=== PATIENT | female | born 1985 | race Caucasian/White ===

== ENCOUNTER → 2017-05-17 | Outpatient (CLI) | payer OTHER ==
[~2017-05-17] MED LIST: CEFDINIR300 MG PO; LEVAQUIN 500 M500 MG PO; PREDNISONE 20 M20 M1 PO; PROAIR HFA8.5 GM INH; TUSSIONEX PENN115 ML PO; VENTOLIN HFA 1818 GM INH; ZPAK PO
== END | disposition home or self-care (01) ==
LOC: M.RAD 05-06 10:38
DX: M25.552 Pain in left hip (principal)

== ENCOUNTER 2017-07-08 19:25 | Emergency (ER) | payer OTHER ==
[~2017-07-08] VITALS: Ht 167.6 cm; Wt 83.9 kg
[2017-07-08] MEDS ORDERED: CEFDINIR300 MG PO (19:36)
[2017-07-08] MEDS ORDERED: VENTOLIN HFA 1818 GM INH (19:37)
[2017-07-08] MEDS ORDERED: PROAIR HFA8.5 GM INH (20:12)
[2017-07-08] MEDS ORDERED: PREDNISONE 20 M20 M1 PO (20:12)
[2017-07-08] MEDS ORDERED: ZPAK PO (20:14)
[2017-07-08 21:33] VITALS: BP 119/81
== END 2017-07-08 21:34 | disposition home or self-care (01) ==
LOC: M.ERS 19:25
DX: J20.9 Acute bronchitis, unspecified (principal)

== ENCOUNTER 2017-07-17 01:03 | Emergency (ER) | payer OTHER ==
[~2017-07-17] VITALS: Ht 167.6 cm; Wt 83.9 kg
[~2017-07-17 01:03] MED LIST changes: -LEVAQUIN 500 M500 MG PO; -TUSSIONEX PENN115 ML PO
[2017-07-17 01:48] LABS: ABSOLUTE BASOPHILS 0.1 thou/uL (0.0-0.2); ABSOLUTE EOSINOPHILS 0.2 thou/uL (0.0-0.7); ABSOLUTE LYMPHOCYTES 2.4 thou/uL (0.8-5.3); ABSOLUTE MONOCYTES 0.8 thou/uL (0.0-1.2); BASOPHILS 0.5 %; EOSINOPHILS 1.8 %; HEMATOCRIT 40.7 % (37.0-47.0); HEMOGLOBIN 13.8 gm/dL (12.0-15.0); LYMPHOCYTES 17.5 %; MCH 31.1 pg (26.0-34.0); MCHC 33.9 g/dL (28.0-37.0); MCV 91.8 fL (80.0-100.0); MONOCYTES 5.8 %; MPV 9.2 fl. (7.2-11.1); NUCLEATED RBCS 0 /100WBC; PLATELET COUNT* 279 thou/uL (150-400); POLYS 74.4 %; RBC 4.43 mil/uL (4.20-5.00); RDW-CV 12.2 % (10.5-14.5); WBC 13.5 thou/uL (4.0-11.0)
[2017-07-17 01:49] LABS: CALCIUM 9.1 mg/dL (8.5-10.1); CREATININE 0.9 mg/dL (0.6-1.3); POTASSIUM 4.1 mmol/L (3.5-5.1)
[2017-07-17 01:54] LABS: ALBUMIN 3.7 g/dL (3.4-5.0); TOTAL BILIRUBIN 0.4 mg/dL (<0.1-1.0); TOTAL PROTEIN 7.2 g/dL (6.4-8.2)
[2017-07-17] MEDS ORDERED: PREDNISONE 20 M20 M1 PO (03:36)
[2017-07-17] MEDS ORDERED: LEVAQUIN 500 M500 MG PO (03:36)
[2017-07-17] MEDS ORDERED: TUSSIONEX PENN115 ML PO (03:38)
[2017-07-17 03:49] VITALS: BP 121/76
== END 2017-07-17 03:52 | disposition home or self-care (01) ==
LOC: M.ERS 01:03
PROVIDERS: Family Medicine
DX: J18.9 Pneumonia, unspecified organism (principal); Z87.891 Personal history of nicotine dependence

== ENCOUNTER 2020-12-01 10:52 | Emergency (ER) | payer OTHER ==
[~2020-12-01] VITALS: Ht 167.6 cm; Wt 90.7 kg
[~2020-12-01 10:52] MED LIST changes: +LEVAQUIN 500 M500 MG PO; +TUSSIONEX PENN115 ML PO
[2020-12-01 11:49] LABS: ABSOLUTE EOSINOPHILS 0.2 thou/uL (0.0-0.7); ABSOLUTE LYMPHOCYTES 1.4 thou/uL (0.8-5.3); ABSOLUTE MONOCYTES 0.5 thou/uL (0.0-1.2); ABSOLUTE NEUTROPHILS 6.4 thou/uL (1.6-8.1); BASOPHILS 0.3 %; EOSINOPHILS 2.4 %; HEMOGLOBIN 15.6 gm/dL (12.0-15.0); LYMPHOCYTES 16.4 %; MCH 31.6 pg (26.0-34.0); MCHC 34.7 g/dL (28.0-37.0); MCV 91.2 fL (80.0-100.0); MONOCYTES 5.7 %; MPV 9.3 fl. (7.2-11.1); NUCLEATED RBCS 0 /100WBC; PLATELET COUNT* 193 thou/uL (150-400); POLYS 75.2 %; RBC 4.93 mil/uL (4.20-5.00); RDW-CV 12.1 % (10.5-14.5); WBC 8.5 thou/uL (4.0-11.0)
[2020-12-01 11:53] LABS: INFLUENZA A ANTIGEN Negative (Negative); INFLUENZA B ANTIGEN Negative (Negative)
[2020-12-01 12:01] LABS: CREATININE 0.8 mg/dL (0.6-1.3); POTASSIUM 4.5 mmol/L (3.5-5.1)
--- NOTE | 2020-12-01 12:07 | EKG ---
[place] [address] ELECTROCARDIOGRAM REPORT Name: BRITNI GALARZA Room: [facility]#: [id number] Admission: 12/01/20 Attend Phys: Discharge: Date of : 81 Date of Service: 12/01/20 1128 Report #: [id number] THIS REPORT FOR: //name// [facility] ED Test Date: 2020-12-01 Test Time: 11:28:18 Pat Name: BRITNI GALARZA Department: Room: Gender: Refuse Collector: [facility] : 1985 Requested By: Isabell Landon Order Number: [id number] MD: Alonso Estes Measurements Intervals [place] Rate: 76 P: 73 MI: 135 QRS: 105 QRSD: 99 T: 25 QT: 418 QTc: 471 Interpretive Statements Sinus rhythm Probable left atrial enlargement Right axis deviation Baseline wander in lead(s) V1 No previous ECG available for comparison Electronically Signed On 12-01-2020 12:06:39 CDT by Alonso Estes [email or web address] <ELECTRONICALLY SIGNED> By: Alonso Estes MD, [facility] 12/01/20 1206 1128 1128 Alonso Estes MD, [facility] /EPI
[2020-12-01 12:12] LABS: ALBUMIN 4.1 g/dL (3.4-5.0); TOTAL BILIRUBIN 0.9 mg/dL (<0.1-1.0); TOTAL PROTEIN 7.2 g/dL (6.4-8.2)
[2020-12-01] MEDS ORDERED: MUCINEX600 MG PO (13:13)
[2020-12-01] MEDS ORDERED: PREDNISONE 10 M10 MG PO (13:13)
[2020-12-01 13:20] VITALS: BP 154/79
== END 2020-12-01 13:21 | disposition home or self-care (01) ==
LOC: M.ERS 10:52
PROVIDERS: Nurse Practitioner Family
DX: J20.9 Acute bronchitis, unspecified (principal); Z20.822 Contact with and (suspected) exposure to COVID-19; F17.210 Nicotine dependence, cigarettes, uncomplicated

== ENCOUNTER 2021-03-13 10:16 | Emergency (ER) | payer OTHER, MEDICAID ==
[~2021-03-13] VITALS: Ht 167.6 cm; Wt 86.2 kg
[~2021-03-13 10:16] MED LIST changes: +MUCINEX600 MG PO; +PREDNISONE 10 M10 MG PO
[2021-03-13] MEDS ORDERED: NEBULIZER MISCELL (10:55)
[2021-03-13] MEDS ORDERED: PRILOSEC10 MG PO (10:55)
[2021-03-13] MEDS ORDERED: DEXAMETHASONE 44 M1 PO (11:43)
[2021-03-13] MEDS ORDERED: ZPAK PO (11:43)
[2021-03-13 12:42] VITALS: BP 132/85
== END 2021-03-13 12:42 | disposition home or self-care (01) ==
LOC: M.ERS 10:16
DX: J40 Bronchitis, not specified as acute or chronic (principal); F17.210 Nicotine dependence, cigarettes, uncomplicated; Z79.899 Other long term (current) drug therapy